=== PATIENT | male | born 1980 | race African-American/Black ===

== ENCOUNTER 2020-07-09 16:56 | Emergency (ER) | payer OTHER, SELFPAY ==
[2020-07-09] MEDS ORDERED: MORPHINE 4 MG/ML SYR ONE (17:33)
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
[2020-07-09] MEDS ORDERED: NA CHLORIDE 0.9% 1,000 ML ONE (19:13)
[2020-07-09] MEDS ORDERED: dexAMETHasone 10 MG/ML VIAL ONE (19:13)
[2020-07-09] MEDS ORDERED: CYCLOBENZAPRINE 10 MG TAB ONE (19:13)
[2020-07-12 11:43] VITALS: TEMP 98.7; O2SAT 100
[2020-07-12 11:44] VITALS: BP 115/68
== END 2020-07-09 19:39 | disposition home or self-care (01) ==
LOC: ER 16:56
DX: S16.1XXA Strain of muscle, fascia and tendon at neck level, initial encounter (principal); S29.012A Strain of muscle and tendon of back wall of thorax, initial encounter; V49.49XA Driver injured in collision with other motor vehicles in traffic accident, initial encounter; Z88.6 Allergy status to analgesic agent
CPT/HCPCS: 72125; 72128; 96372; 99283; J1100; J7030